=== PATIENT | female | born 1940 | race Caucasian/White ===

== ENCOUNTER 2019-01-25 16:59 | Inpatient (IN) | payer OTHER ==
--- NOTE | 2019-01-25 17:09 | PDOC ---
Rapid Medical Evaluation Time Seen by Provider: 01/25/19 17:06 Medical Evaluation: Allergies Allergy/AdvReac Type Severity Reaction Status Date / Time erythromycin lactobionate Allergy Verified 01/25/19 17:08 [From Erythrocin] 01/25/19 17:09 I performed a brief in-person evaluation of this patient. Chief complaint: Chest pain, weakness, dry cough, "hot and cold" for 2 days Pertinent physical exam findings: RRR, S1/S2, no murmurs, clear lungs. I have ordered the following: EKG, CXR, cardiac labs Patient will proceed to ED for further evaluation. Discharge Disposition - Diagnosis Chest pain - Referrals - Patient Instructions - Post Discharge Activity
--- NOTE | 2019-01-25 17:22 | PDOC ---
History of Present Illness - General Chief Complaint: Chest Pain Stated Complaint: CHEST PAIN Time Seen by Provider: 01/25/19 17:06 - History of Present Illness Initial Comments: 78yo F with PMH of HTN, HLD, Hypothyroid presenting with episodes of lightheadedness, diaphoresis, flushing, feeling "hot and cold," and weakness. These episodes have occurred at least once daily for the past week. The most recent episode occurred about one hour prior to arrival while she was out with her family. Denies loss of consciousness but does report she felt like she was going to pass out. Patient also reports chest "pressure" lasting for a couple minutes in correspondence with the most recent episode. The chest pain was non- radiating, non-pleuritic, and non-palpable. Denies shortness of breath, nausea, or vomiting. She has had high blood pressure readings in the past. Reports adherence to her medication regimen. No headaches, vision changes, or focal weakness. Patient has leg swelling at baseline which is not more than usual. She attributes this swelling to 'genetics' and does not believe it is due to a cardiac cause. Patient tested positive for influenza last month and was treated with tamiflu. She also has had a dry cough since that time. No hemoptysis, no recent surgical history, no recent immobilization, no hormone use, no history of DVT or PE. Denies fevers, urinary symptoms, or abdominal pain. PCP: Dr. Chambers (patient's granddaughter believed this doctor was the nut threader, but is listed in our callbook as an internal medicine provider) Endocrine: Dr. Oconnor Past History - Past Medical History Allergies/Adverse Reactions: Allergies Allergy/AdvReac Type Severity Reaction Status Date / Time erythromycin lactobionate Allergy Verified 01/25/19 17:08 [From Erythrocin] Home Medications: Ambulatory Orders Levothyroxine [Synthroid -] 100 mcg PO DAILY 11/14/14 Valsartan [Diovan] 160 mg PO DAILY 11/14/14 Collagenase Clostridium Hist. [Santyl -] 1 applic TP DAILY #14 applic 01/06/16 COPD: No GI Disorders: Yes (hiatal hernia) HTN: Yes Thyroid Disease: Yes - Surgical History Abdominal Surgery: Yes ([facility]) Cholecystectomy: Yes Orthopedic Surgery: Yes (bilateral knee replacement) - Immunization History Immunization Up to Date: Yes - Suicide/Smoking/Psychosocial Hx Smoking History: Never smoked Have you smoked in the past 12 months: No If you are a former smoker, when did you quit?: 30y Information on smoking cessation initiated: No Hx Alcohol Use: No Drug/Substance Use Hx: No Substance Use Type: None Review of Systems - Review of Systems Comments:: Constitutional: no fever, feeling 'hot and cold' HEENT: no throat pain, no dysphagia Cardiovascular: +chest pain, no palpitations Respiratory: +cough, no shortness of breath Gastrointestinal: no abdominal pain, no nausea Genitourinary: no dysuria, no frequency Musculoskeletal: no myalgia, no arthralgia Skin: no rash, no itching Neurologic: no headache, +weakness *Physical Exam - Vital Signs Last Vital Signs Temp Pulse Resp BP Pulse Ox 97.8 F 72 16 184/74 H 98 01/25/19 17:08 01/25/19 17:08 01/25/19 17:08 01/25/19 17:08 01/25/19 17:08 - Physical Exam Comments: General: Awake, alert, and fully oriented, in no acute distress Head: No signs of trauma Eyes: EOMI, sclera anicteric ENT: Moist mucus membranes Neck: Normal ROM, supple Lungs: Lungs clear, Normal breath sounds Cardio: Regular rhythm, S1 and S2 present Abdomen: Soft, nontender Extremities: Normal range of motion, Distal pulses present, BLE non-pitting edema SKIN: Warm, Dry, normal turgor Neurologic: Cranial nerves II through XII grossly intact. Normal speech ED Treatment Course - LABORATORY CBC & Chemistry Diagram: 01/25/19 17:00 01/25/19 17:00 Medical Decision Making - Medical Decision Making 78yo F with PMH of HTN, HLD, Hypothyroid presenting with episodes of lightheadedness, diaphoresis, flushing, feeling "hot and cold," and weakness. DDX including but not limited to vasovagal pre-syncope, cardiogenic pre-syncope , metabolic pre-syncope, neurogenic pre-syncope, postural pre-syncope, , ACS, PE VS significant for hypertension; patient is unsure of her baseline BP Pre-Syncope Workup EKG, CBC, CMP, Cardiac, CXR 01/25/19 18:36 EKG: rate 74, QTc 448, NSR CXR without acute pathology, my impression CBC WBC 6.9 K/mm3 (4.0-10.0) 01/25/19 17:00 RBC 4.33 M/mm3 (3.60-5.2) 01/25/19 17:00 Hgb 12.6 GM/dL (10.7-15.3) 01/25/19 17:00 Hct 37.9 % (32.4-45.2) 01/25/19 17:00 MCV 87.5 fl (80-96) 01/25/19 17:00 MCH 29.1 pg (25.7-33.7) 01/25/19 17:00 MCHC 33.2 g/dl (32.0-36.0) 01/25/19 17:00 RDW 14.1 % (11.6-15.6) 01/25/19 17:00 Plt Count 221 K/MM3 (134-434) 01/25/19 17:00 MPV 8.0 fl (7.5-11.1) 01/25/19 17:00 Absolute Neuts (auto) 4.5 K/mm3 (1.5-8.0) 01/25/19 17:00 Neutrophils % 64.9 % (42.8-82.8) 01/25/19 17:00 Lymphocytes % 24.9 % (8-40) D 01/25/19 17:00 Monocytes % 6.2 % (3.8-10.2) 01/25/19 17:00 Eosinophils % 2.6 % (0-4.5) 01/25/19 17:00 Basophils % 1.4 % (0-2.0) 01/25/19 17:00 Nucleated RBC % 0 % (0-0) 01/25/19 17:00 No anemia or leukocytosis CMP Sodium 137 mmol/L (136-145) 01/25/19 17:00 Potassium 4.4 mmol/L (3.5-5.1) 01/25/19 17:00 Chloride 107 mmol/L (98-107) 01/25/19 17:00 Carbon Dioxide 25 mmol/L (21-32) 01/25/19 17:00 Anion Gap 6 MMOL/L (8-16) L 01/25/19 17:00 BUN 18 mg/dL (7-18) 01/25/19 17:00 Creatinine 0.7 mg/dL (0.55-1.3) 01/25/19 17:00 Creat Clearance w eGFR 80.51 (>60) 01/25/19 17:00 Random Glucose 93 mg/dL (74-106) 01/25/19 17:00 Calcium 8.9 mg/dL (8.5-10.1) 01/25/19 17:00 Total Bilirubin 0.3 mg/dL (0.2-1) 01/25/19 17:00 AST 12 U/L (15-37) L 01/25/19 17:00 ALT 16 U/L (13-61) 01/25/19 17:00 Alkaline Phosphatase 73 U/L (45-117) 01/25/19 17:00 Creatine Kinase 56 U/L (26-192) 01/25/19 17:00 Troponin I < 0.02 ng/ml (0.00-0.05) 01/25/19 17:00 B-Natriuretic Peptide 110.6 pg/ml (5-450) 01/25/19 17:00 Total Protein 7.5 g/dl (6.4-8.2) 01/25/19 17:00 Albumin 3.8 g/dl (3.4-5.0) 01/25/19 17:00 Electrolytes unremarkable Tpn <0.02 BNP nl Plan to admit for pre-syncope 01/25/19 18:42 Vital Signs Temperature 97.8 F 01/25/19 17:08 Pulse Rate 77 01/25/19 18:32 Respiratory Rate 17 01/25/19 18:32 Blood Pressure 147/115 H 01/25/19 18:32 O2 Sat by Pulse Oximetry (%) 97 01/25/19 18:32 BP decreased from 184/74 which was taken at triage 01/25/19 18:[address] Ramirez who accepted patient for telemetry observation under Dr. Feliz. 01/25/19 19:42 *DC/Admit/Observation/Transfer Diagnosis at time of Disposition: Pre-syncope Chest pain Qualifiers: Chest pain type: other chest pain Qualified Code(s): R07.89 - Other chest pain - Discharge Dispostion Condition at time of disposition: Guarded Decision to Admit order: Yes - Referrals - Patient Instructions - Post Discharge Activity
[2019-01-25 17:35] LABS: BASO % 1.4 % (0-2.0); EOS % 2.6 % (0-4.5); HEMATOCRIT 37.9 % (32.4-45.2); HEMOGLOBIN 12.6 GM/dL (10.7-15.3); LYMPH % 24.9 % (8-40); MCH 29.1 pg (25.7-33.7); MCHC 33.2 g/dl (32.0-36.0); MEAN CELL VOLUME 87.5 fl (80-96); MONO % 6.2 % (3.8-10.2); NEUT % 64.9 % (42.8-82.8); PLATELET COUNT 221 K/MM3 (134-434); RBC 4.33 M/mm3 (3.60-5.2); RDW 14.1 % (11.6-15.6); WHITE BLOOD COUNT 6.9 K/mm3 (4.0-10.0)
[2019-01-25 17:47] LABS: INR 1.03 (0.83-1.09); PROTHROMBIN TIME (PATIENT) 12.1 SEC (9.7-13.0)
[2019-01-25 17:56] LABS: ALBUMIN 3.8 g/dl (3.4-5.0); ALK PHOS 73 U/L (45-117); ANION GAP 6 MMOL/L (8-16); BILIRUBIN,TOTAL 0.3 mg/dL (0.2-1); BLOOD UREA NITROGEN 18 mg/dL (7-18); CALCIUM 8.9 mg/dL (8.5-10.1); CHLORIDE 107 mmol/L (98-107); CO2 25 mmol/L (21-32); CREATININE 0.7 mg/dL (0.55-1.3); GLUCOSE,RANDOM 93 mg/dL (74-106); POTASSIUM 4.4 mmol/L (3.5-5.1); SGOT/AST 12 U/L (15-37); SGPT/ALT 16 U/L (13-61); SODIUM 137 mmol/L (136-145); TOT PROT 7.5 g/dl (6.4-8.2)
[2019-01-25 18:37] LABS: N-TERMINAL BNP 110.6 pg/ml (5-450)
--- NOTE | 2019-01-25 18:40 | PDOC ---
Documentation entered by Emre Forbes SCRIBE, acting as scribe for Doe Garnica MD. Doe Garnica MD: This documentation has been prepared by the Andrei gary Daniel, SCRIBE, under my direction and personally reviewed by me in its entirety. I confirm that the documentation accurately reflects all work, treatment, procedures, and medical decision making performed by me. Attending Attestation - Resident Resident Name: Geovanna Orr - ED Attending Attestation I have performed the following: I have examined & evaluated the patient, The case was reviewed & discussed with the resident, I agree w/resident's findings & plan, Exceptions are as noted - HPI HPI: 01/25/19 18:23 The patient is an 78 year old female with a past medical history of HTN, HLD, and hypothyroidism here today for evaluation of generalized symptoms of chest heaviness and pre-syncope. Pt states that she had 2 episodes today of feeling lightheaded. She states that she suddenly became flushed and felt like she was going to faint but did not lose consciousness. Per granddaughter, pt appeared very ill and looked like she was about to faint. Pt also endorses a heaviness in her chest but denies any pain. Denies SOB. Denies palpitations. Patient denies headache. Denies fever. Denies shortness of breath. Denies nausea , vomiting, diarrhea, abdominal pain. Denies lower extremity edema. Allergies: erythromycin lactobionate - Physicial Exam PE: 01/25/19 18:39 "GENERAL: Awake, alert, and fully oriented, in no acute distress. HEAD: No signs of trauma EYES: PERRLA, EOMI, sclera anicteric, conjunctiva clear ENT: Auricles normal inspection, hearing grossly normal, nares patent, oropharynx clear without exudates. Moist mucosa NECK: Nontender, no stepoffs, Normal ROM, supple, no lymphadenopathy, JVD, or masses LUNGS: Breath sounds equal, clear to auscultation bilaterally. No wheezes, and no crackles HEART: Regular rate and rhythm, normal S1 and S2, no murmurs, rubs or gallops ABDOMEN: Soft, nontender, normoactive bowel sounds. No guarding, no rebound. No masses EXTREMITIES: Normal range of motion, no edema. No clubbing or cyanosis. No cords, erythema, or tenderness NEUROLOGICAL: Cranial nerves II through XII intact. 5/5 strength and sensation in all extremities, Normal speech, normal gait, normal cerebellar function SKIN: Warm, Dry, normal turgor, no rashes or lesions noted. - Medical Decision Making 01/25/19 18:39 78 F with pre-syncope and chest heaviness. EKG without signs of ischemia. Will r /o ACS. Also consider paroxysmal arrhythmia. Will r/o infectious process as well. - labs, trop, BNP - CXR, UA - Admit tele 01/25/19 22:53 Granddaughter Candy'fer phone number# - [phone]
--- NOTE | 2019-01-25 19:21 | HP ---
Admitting History and Physical - Primary Care Physician PCP: Dr Chambers - Admission Chief Complaint: Dizziness and recurrent chest pain x 1 day History of Present Illness: Pt is an 78 yo F with PMHx of HTN, HLD, hypothyroidism, skin cancer s/p excision (3 years), Uterine cancer s/p hysterectomy and chemotx (2 years)-[facility] now presenting with pre-syncope and chest pain x2 today while shopping in the mall for one day. The pain was relieved by rest, sharp and epigastric, radiating to back with associated SOB. Relieved with change in position. There was associated diaphoresis. Each episode lasted about 6 minutes with associated dizziness, no collapse. Pt has chronic leg edema, no pulmonary hx but has had worsening fatigue over the past weeks. She is independent ADLS, walks without a cane. Smoked 50 years ago, no COPD, or asthma. 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 Does not recollect having a stress test done recently, no hx of CAD or arrythmias. Takes valsartan bid with intermittently elevated BP up to 160s and checks infrequently. Last BP and thyroid medication this am. Of note pt reports recent recovery from respiratory infection, was in touch with daughter recently treated fro pneumonia. 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 No: CVA, Dementia, Peripheral Neuropathy, Seizure, Syncope, TIA Cardiovascular: Yes: HTN, Hyperlipdemia. No: LA Pulmonary: Yes: Cancer (skin cancer with excision RLE, and uterine cancer s/p hysterectomy). No: Asthma, COPD Gastrointestinal: No: Ascites, Constipation, Gastritis, GI Bleed Renal/: No: Hematuria Psych: Yes: Anxiety Musculoskeletal: Yes: Osteoarthritis, Other (B/L knee replacements) ENT: No: Allergic Rhinitis, Sinusitis Endocrine: Yes: Hypothyroidism (On levothyroxine). No: Diabetes Mellitus Dermatology: Yes: Other (skin cancer unsure what type s/p excision) - Past Surgical History Past Surgical History: Yes: Hysterectomy - Smoking History Smoking history: Former smoker (Quit 50 years ago) Have you smoked in the past 12 months: No If you are a former smoker, when did you quit?: 30y - Alcohol/Substance Use Hx Alcohol Use: No - Social History Usual Living Arrangement: Yes: With Spouse ADL: Independent Home Medications - Allergies Allergies/Adverse Reactions: Allergies Allergy/AdvReac Type Severity Reaction Status Date / Time erythromycin lactobionate Allergy Verified 01/25/19 17:08 [From Erythrocin] - Home Medications Home Medications: Ambulatory Orders Levothyroxine [Synthroid -] 100 mcg PO DAILY 11/14/14 Valsartan [Diovan] 160 mg PO DAILY 11/14/14 Collagenase Clostridium Hist. [Santyl -] 1 applic TP DAILY #14 applic 01/06/16 Review of Systems - Review of Systems Constitutional: reports: Diaphoresis, Loss of Appetite, Weakness. denies: Chills, Fever, Malaise, Unintentional Wgt. Loss Eyes: denies: Double Vision, Eye Pain, Recent Change in Vision HENT: denies: Difficult Swallowing, Ear Discharge, Ear Pain, Epistaxis, Hearing Loss, Nasal Congestion Neck: denies: Stiffness, Tenderness Cardiovascular: reports: Chest Pain, Shortness of Breath. denies: Palpitations Respiratory: denies: Cough, Hemoptysis, Wheezing Gastrointestinal: denies: Abdominal Pain, Constipation, Diarrhea, Dysphagia, Vomiting Genitourinary: denies: Burning, Discharge, Dysuria, Flank Pain, Frequency, Incontinence Musculoskeletal: reports: Joint Swelling (b/l knee awelling l>R). denies: Back Pain Neurological: reports: Tremors (fine upper extremity), Unsteady Gait. denies: Change in LOC, Confusion, Dizziness, Parasthesia, Pre-Existing Deficit Psychiatric: reports: Anxiety Physical Examination Vital Signs: Vital Signs Temperature 97.8 F 01/25/19 17:08 Pulse Rate 77 01/25/19 18:32 Respiratory Rate 17 01/25/19 18:32 Blood Pressure 147/115 H 01/25/19 18:32 O2 Sat by Pulse Oximetry (%) 97 01/25/19 18:32 Constitutional: Yes: Calm Eyes: Yes: Conjunctiva Clear, EOM Intact, PERRL HENT: Yes: Atraumatic. No: Nasal Congestion, Pharyngeal Erythema Neck: Yes: Supple. No: Thyromegaly Cardiovascular: Yes: S1, S2 Respiratory: Yes: CTA Bilaterally Gastrointestinal: Yes: Normal Bowel Sounds, Soft Renal/: No: CVA Tenderness - Left, CVA Tenderness - Right, Urethral Discharge Edema: Yes Edema: LLE: 3+, RLE: 3+ Peripheral Pulses WNL: Yes Peripheral Pulses: Left Doralis Pedis: 1+, Right Dorsalis Pedis: 1+ Neurological: Yes: Alert, Oriented ...Motor Strength: WNL Psychiatric: Yes: Alert, Oriented Labs: CBC, BMP 01/25/19 17:00 01/25/19 17:00 Assessment/Plan Ambulatory Orders Levothyroxine [Synthroid -] 100 mcg PO DAILY 11/14/14 Valsartan [Diovan] 160 mg PO DAILY 11/14/14 Collagenase Clostridium Hist. [Santyl -] 1 applic TP DAILY #14 applic 01/06/16 Current Medications Levothyroxine Sodium (Synthroid -) 100 mcg PO AM [facility] Valsartan (Diovan -) 160 mg PO DAILY [facility] Last Admin: 01/25/19 21:00 Dose: 160 mg Pt is an 78 yo F with PMHx of HTN, HLD, hypothyroidism, skin cancer s/p excision (3 years), Uterine cancer s/p hysterectomy and chemotx (2 years)-[facility] now presenting with pre-syncope and chest pain x2 today while shopping in the mall for one day. 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 Reports compliance on diovan, but does not routnely check BP No recent stress test/echo done, no professor of pathology on file Initial trops negative Cont cardiac monitoring Repeat trops Initial EKG- no clear evidence of ongoing ischemia Repeat EKG #Chest pain Pain was epigastric and reproducible R/o ACS- heart score-5 Repeat trops Repeat EKG ECHO Cardiology consult-Dr Waggoner ASA 79 #Dizziness Worsening dizziness, especially on standing No hearing loss, no fevers, no URTI Questionable new gait abnormality CT head stat w/o Contrast #HTN Could be contributing to new dizziness Elevated in ED Diovan resumed Pending CT head Will need to control BP better if no acute changes on CT Lisinopril 5mg daily added #Leg swelling Pt with chronic b/l leg swelling for >5years No hx of CHF Echo pending Had prior b/l knee replacements for severe OA Now with worsening edema L>R Well's score for DVT-2 Duplex US of b/l LE BNP- 110- not elevated #HLD HgbA1c- pending ASCVD-cannot be calculated on 78year old, using age 75yrs- pt needs moderate - high intensity statins Lipid profile pending No statins documented #hypothyroidism On levothyroxine- cont TSH pending #Cancer Hx skin cancer s/p excision (3 years), Uterine cancer s/p hysterectomy Appears in remission for both #FEN No standing fluids Monitor Electrolytes, replete as needed Sodium free diet #PPx Heparin 40mg daily sq resumed with negative CT head #Dispo Tele obs Visit type - Emergency Visit Emergency Visit: Yes ED Registration Date: 01/25/19 Care time: The patient presented to the Emergency Department on the above date and was hospitalized for further evaluation of their emergent condition. - New Patient This patient is new to me today: Yes Date on this admission: 01/26/19 - Critical Care Critical Care patient: No
--- NOTE | 2019-01-25 20:21 | PN ---
Teaching Attending Note Name of Resident: Leilani Ramirez ATTENDING PHYSICIAN STATEMENT I saw and evaluated the patient. I reviewed the resident's note and discussed the case with the resident. I agree with the resident's findings and plan as documented. SUBJECTIVE: Seen and examined; please see resident note for further historical information. Briefly, she has a PMH of HTN, skin cancer with excision, uterine cancer. She was walking in the mall today when she got retrosternal chest pain and diaphoresis with associated dizziness for 1 weeks. She has been fatiguable easier than normal earlier. At home she takes valsartan. No previous stress test, caths; has not seen cardiology in the past. She has had LE edema for 5 years. She was unsteady due to the dizziness. Chest pain was somewhat typical , relieved with rest. 10 sys ROS done and negative aside from HPI PMH, PSH, FH, SH reviewed Home Medications Medication Instructions Recorded Levothyroxine [Synthroid -] 100 mcg PO DAILY 11/14/14 Valsartan [Diovan] 160 mg PO DAILY 11/14/14 Collagenase Clostridium Hist. 1 applic TP DAILY #14 applic 01/06/16 [Santyl -] OBJECTIVE: VS, labs, and imaging reviewed NAD, AAO, resting comfortably in bed NC AT EOMI PERRLA RRR s1/2 no mgr Lungs CTAB, w/ sym exp NT ND +BS CN2-12 wnl, no fnd ASSESSMENT AND PLAN: Patient presents with somewhat typical chest pain and dizziness found to have 1) Chest Pain Somewhat convincing story with no prior cardiac workup but some risk factors ( HTN, obese, remote history smoking, etc.). Will obtain labs to fully risk stratify and observe on tele and trend troponin. Consult CV for further recommendations regarding stress test, etc. 2) Presyncope Dizziness, etc. noted earlier. CT ordered to r/o central process. No tinitus or rotational movement. Will check echo and monitor telemetry. Orthostatics negative done by resident. 3) HTN -Continue home meds; titrate if needed 4) Hx Hypothyroid Continue home meds; check TSH
[2019-01-25] MEDS ORDERED: VALSARTAN 80 MG TABLET (UD) ONE (20:46)
[2019-01-25] MEDS: VALSARTAN 160 MG TABLET (UD) PO SCH (21:00)
[2019-01-25 22:23] LABS: CHOLESTEROL 235 mg/dL (50-200); HDL CHOLESTEROL 76 mg/dL (40-60); TRIGLYCERIDES 59 mg/dL (0-150)
[2019-01-26 00:35] LABS: URINE APPEARANCE CLEAR; URINE BILIRUBIN NEGATIVE (NEGATIVE); URINE COLOR YELLOW; URINE GLUCOSE (UA) NEGATIVE (NEGATIVE); URINE KETONE NEGATIVE (NEGATIVE); URINE LEUK ESTERASE TRACE (NEGATIVE); URINE NITRITE NEGATIVE (NEGATIVE); URINE PROTEIN NEGATIVE (NEGATIVE); URINE UROBILINOGEN 0.2 mg/dL (0.2-1.0)
[2019-01-26 00:49] LABS: URINE RBC 0-1 /hpf (0-4)
[2019-01-26 01:49] VITALS: BMI 34.2
[2019-01-26] MEDS: LISINOPRIL 5 MG TABLET (FP) PO SCH ×2 (01:57→09:14)
[2019-01-26] MEDS ORDERED: LISINOPRIL 5 MG TABLET (FP) PO ONE (02:29)
[2019-01-26 06:30] LABS: BASO % 2.2 % (0-2.0); EOS % 4.1 % (0-4.5); HEMATOCRIT 33.7 % (32.4-45.2); HEMOGLOBIN 11.3 GM/dL (10.7-15.3); LYMPH % 32.6 % (8-40); MCH 29.1 pg (25.7-33.7); MCHC 33.5 g/dl (32.0-36.0); MEAN CELL VOLUME 87.1 fl (80-96); MEAN PLT VOLUME 8.1 fl (7.5-11.1); MONO % 7.4 % (3.8-10.2); NEUT % 53.7 % (42.8-82.8); PLATELET COUNT 207 K/MM3 (134-434); RBC 3.86 M/mm3 (3.60-5.2); RDW 14.2 % (11.6-15.6); WHITE BLOOD COUNT 6.2 K/mm3 (4.0-10.0)
[2019-01-26] MEDS: LEVOTHYROXINE NA 100 MCG TABLET (FP) PO SCH (06:41)
[2019-01-26 06:44] LABS: INR 1.02 (0.83-1.09)
[2019-01-26 07:01] LABS: ALBUMIN 3.1 g/dl (3.4-5.0); ALK PHOS 64 U/L (45-117); ANION GAP 5 MMOL/L (8-16); BILIRUBIN,TOTAL 0.3 mg/dL (0.2-1); BLOOD UREA NITROGEN 22 mg/dL (7-18); CALCIUM 8.5 mg/dL (8.5-10.1); CHLORIDE 108 mmol/L (98-107); CO2 27 mmol/L (21-32); CREATININE 0.7 mg/dL (0.55-1.3); GLUCOSE,RANDOM 90 mg/dL (74-106); PHOSPHOROUS 4.8 mg/dL (2.5-4.9); SGOT/AST 11 U/L (15-37); SGPT/ALT 13 U/L (13-61); SODIUM 140 mmol/L (136-145); TOT PROT 6.3 g/dl (6.4-8.2)
[2019-01-26] MEDS: HEPARIN NA (PORCINE) 5,000 UNITS/ML 1ML VIAL SQ SCH ×3 (09:14→21:23)
[2019-01-26] MEDS: VALSARTAN 160 MG TABLET (UD) PO SCH (09:14)
[2019-01-26] MEDS: ASPIRIN 81 MG CHEWABLE TABLETS PO SCH (09:14)
--- NOTE | 2019-01-26 09:14 | PN ---
Progress Note, Physician - Current Medication List Current Medications: Active Medications Aspirin (Asa -) 81 mg PO DAILY [facility] Atorvastatin Calcium (Lipitor -) 40 mg PO HS [facility] Heparin Sodium (Porcine) (Heparin -) 5,000 unit SQ TID [facility] Levothyroxine Sodium (Synthroid -) 100 mcg PO AM [facility] Last Admin: 01/26/19 06:41 Dose: 100 mcg Lisinopril (Prinivil) 5 mg PO DAILY [facility] Last Admin: 01/26/19 01:57 Dose: 5 mg Valsartan (Diovan -) 160 mg PO DAILY [facility] Last Admin: 01/25/19 21:00 Dose: 160 mg - Objective Vital Signs: Vital Signs Temperature 97.9 F 01/26/19 06:00 Pulse Rate 64 01/26/19 06:00 Respiratory Rate 18 01/26/19 06:00 Blood Pressure 144/55 L 01/26/19 06:00 O2 Sat by Pulse Oximetry (%) 97 01/26/19 01:30 Constitutional: Yes: Well Nourished, No Distress, Calm Eyes: Yes: WNL, Conjunctiva Clear, EOM Intact HENT: Yes: WNL, Atraumatic, Normocephalic Neck: Yes: WNL, Supple, Trachea Midline Cardiovascular: Yes: WNL, Regular Rate and Rhythm Respiratory: Yes: WNL, Regular, CTA Bilaterally Gastrointestinal: Yes: WNL, Normal Bowel Sounds, Soft ...Rectal Exam: Yes: Deferred Musculoskeletal: Yes: WNL Extremities: Yes: WNL Edema: Yes Edema: LLE: 2+, RLE: 2+ Peripheral Pulses WNL: Yes Integumentary: Yes: WNL Neurological: Yes: WNL, Alert, Oriented ...Motor Strength: WNL Psychiatric: Yes: WNL, Alert, Oriented Labs: CBC, BMP 01/26/19 05:30 01/26/19 05:30 INR, PTT INR 1.02 (0.83-1.09) 01/26/19 05:30 Problem List - Problems (1) Chest pain Code(s): R07.9 - CHEST PAIN, UNSPECIFIED Qualifiers: Chest pain type: other chest pain Qualified Code(s): R07.89 - Other chest pain; R07.8 - Other chest pain (2) Pre-syncope Code(s): R55 - SYNCOPE AND COLLAPSE (3) Hypertension Code(s): I10 - ESSENTIAL (PRIMARY) HYPERTENSION Assessment/Plan this is an 78 y/o f patient presents with hx of HTN, presented to the hospital with an atypical chest pain and associated with dizziness 1) atypical chest Pain - patient has a grade III murmur at the aortic area Trend ECG - Trend Troponin - obtain cardiology consult - admit to tele 2) Presyncope - admit to tele - cardiology - grade 3 murmur at the 2nd IC space - echocardio 3) HTN -Continue home meds; titrate if needed 4) Hx Hypothyroid Continue home meds
[2019-01-26] MEDS ORDERED: ENOXAPARIN NA (PORCINE) 40 MG/0.4 ML DISP.SYRIN SQ SCH (10:00)
--- NOTE | 2019-01-26 12:23 | CON.CARD ---
Consult Consult Specialty:: Cardiology Referred by:: Medicine Reason for Consultation:: chest pain - History of Present Illness Chief Complaint: chest pain, dizziness History of Present Illness: 78F HTN, HLD, hypothyroidism, uterine cancer s/p hysterectom/chemo p/w presyncope, chest pain [place]lie walking in mall. Sharp and epigastric pain, relieved by rest with associated shortness of breath and sweating. Had episodes lasting a few minutes each. Also felt dizziness like she was going to pass out. Today feels better. No prior cardiac hx - Past Medical History OTOLARYNGOLOGY PHYSICIAN: Yes: Vertigo. No: CVA, Dementia, Peripheral Neuropathy, Seizure, Syncope, TIA Cardio/Vascular: Yes: HTN, Hyperlipdemia. No: AL Pulmonary: Yes: Cancer (skin cancer with excision RLE, and uterine cancer s/p hysterectomy). No: Asthma, COPD Gastrointestinal: No: Ascites, Constipation, Gastritis, GI Bleed Renal/: No: Hematuria ...: No Psych: Yes: Anxiety Musculoskeletal: Yes: Osteoarthritis, Other (B/L knee replacements) ENT: No: Allergic Rhinitis, Sinusitis Endocrine: Yes: Hypothyroidism (On levothyroxine). No: Diabetes Mellitus Dermatology: Yes: Other (skin cancer unsure what type s/p excision) - Past Surgical History Past Surgical History: Yes: Hysterectomy - Alcohol/Substance Use Hx Alcohol Use: No - Smoking History Smoking history: Former smoker (Quit 50 years ago) Have you smoked in the past 12 months: No If you are a former smoker, when did you quit?: 30y - Social History ADL: Independent Home Medications - Allergies Allergies/Adverse Reactions: Allergies Allergy/AdvReac Type Severity Reaction Status Date / Time erythromycin lactobionate Allergy Verified 01/25/19 17:08 [From Erythrocin] - Home Medications Home Medications: Ambulatory Orders Levothyroxine [Synthroid -] 100 mcg PO DAILY 11/14/14 Valsartan [Diovan] 160 mg PO DAILY 11/14/14 Collagenase Clostridium Hist. [Santyl -] 1 applic TP DAILY #14 applic 01/06/16 Family Disease History - Family Disease History Family History: Unremarkable Review of Systems - Review of Systems Constitutional: reports: No Symptoms Eyes: reports: No Symptoms HENT: reports: No Symptoms Neck: reports: No Symptoms Cardiovascular: reports: No Symptoms Respiratory: reports: No Symptoms Gastrointestinal: reports: No Symptoms Genitourinary: reports: No Symptoms Musculoskeletal: reports: No Symptoms Integumentary: reports: No Symptoms Neurological: reports: No Symptoms Endocrine: reports: No Symptoms Hematology/Lymphatic: reports: No Symptoms Psychiatric: reports: No Symptoms Vital Signs: Vital Signs Temperature 98 F 01/26/19 10:00 Pulse Rate 68 01/26/19 10:00 Respiratory Rate 20 01/26/19 10:00 Blood Pressure 148/67 01/26/19 10:00 O2 Sat by Pulse Oximetry (%) 95 01/26/19 09:00 Constitutional: Yes: Well Nourished, No Distress, Calm Eyes: Yes: Conjunctiva Clear, EOM Intact HENT: Yes: Atraumatic, Normocephalic Neck: Yes: Supple, Trachea Midline Respiratory: Yes: Regular, CTA Bilaterally Gastrointestinal: Yes: Normal Bowel Sounds, Soft Cardiovascular: Yes: Regular Rate and Rhythm JVD: No Carotid Bruit: No PMI: Non-Displaced Heart Sounds: Yes: S1, S2 Murmur: Yes: Systolic Murmur, Grade 2 Musculoskeletal: No: Back Pain Extremities: No: Cold Edema: Yes Edema: LLE: Trace, RLE: Trace Peripheral Pulses WNL: Yes Peripheral Pulses: 2+ Left Doralis Pedis, 2+ Right Dorsalis Pedis Integumentary: No: Jaundice Neurological: Yes: Alert, Oriented Psychiatric: No: Agitated - Other Data Labs, Other Data: CBC, BMP 01/26/19 05:30 01/26/19 05:30 INR, PTT INR 1.02 (0.83-1.09) 01/26/19 05:30 Troponin, BNP 01/25/19 01/25/19 01/26/19 17:00 21:31 05:30 Troponin I < 0.02 < 0.02 < 0.02 B-Natriuretic Peptide 110.6 Troponin, BNP 01/25/19 01/25/19 01/26/19 17:00 21:31 05:30 Troponin I < 0.02 < 0.02 < 0.02 B-Natriuretic Peptide 110.6 Assessment/Plan EKG: sinus, nl intervals, no ischemic changes CXR: questionable retrocardiac density tele: sinus Chest pain, dizziness - epigastric pain, reproducible - now resolved - monitoring on tele, no events - orthostatics negative - trop neg x3, EKG no ischemic changes - less likely ACS - echo pending HTN - not compliant at home with diovan - resumed in ER - BP improved, monitor Edema - stable for 5 years - lower ext doppler no DVT - echo pending HLD - started on atorvastatin here, continue hypothyroidism - manage per primary
--- NOTE | 2019-01-26 14:11 | EKG ---
Test Reason : Blood Pressure : / mmHG Vent. Rate : 064 BPM Atrial Rate : 064 BPM P-R Int : 182 ms QRS Dur : 092 ms QT Int : 436 ms P-R-T Axes : 039 004 040 degrees QTc Int : 449 ms NORMAL SINUS RHYTHM POSSIBLE INFERIOR INFARCT , AGE UNDETERMINED CANNOT RULE OUT ANTERIOR INFARCT , AGE UNDETERMINED ABNORMAL ECG Confirmed by MD BRENTON, MONSE ([id number]) on 01/26/2019 2:11:17 PM Referred By: Confirmed By:MONSE FARRIS MD
--- NOTE | 2019-01-26 14:20 | EKG ---
Test Reason : Blood Pressure : / mmHG Vent. Rate : 074 BPM Atrial Rate : 074 BPM P-R Int : 168 ms QRS Dur : 092 ms QT Int : 404 ms P-R-T Axes : 053 009 048 degrees QTc Int : 448 ms NORMAL SINUS RHYTHM CANNOT RULE OUT ANTERIOR INFARCT , AGE UNDETERMINED ABNORMAL ECG Confirmed by MD BRENTON, MONSE ([id number]) on 01/26/2019 2:19:59 PM Referred By: Confirmed By:MONSE FARRIS MD
[2019-01-26] MEDS: ATORVASTATIN CA 40 MG TABLET (FP) PO SCH (21:23)
[2019-01-27] MEDS: HEPARIN NA (PORCINE) 5,000 UNITS/ML 1ML VIAL SQ SCH ×3 (06:01→21:30)
[2019-01-27] MEDS: LEVOTHYROXINE NA 100 MCG TABLET (FP) PO SCH (06:02)
--- NOTE | 2019-01-27 07:33 | PN ---
Progress Note, Physician - Current Medication List Current Medications: Active Medications Aspirin (Asa -) 81 mg PO DAILY [facility] Last Admin: 01/26/19 09:14 Dose: 81 mg Atorvastatin Calcium (Lipitor -) 40 mg PO HS [facility] Last Admin: 01/26/19 21:23 Dose: 40 mg Heparin Sodium (Porcine) (Heparin -) 5,000 unit SQ TID [facility] Last Admin: 01/27/19 06:01 Dose: 5,000 unit Levothyroxine Sodium (Synthroid -) 100 mcg PO AM [facility] Last Admin: 01/27/19 06:02 Dose: 100 mcg Valsartan (Diovan -) 160 mg PO DAILY [facility] Last Admin: 01/26/19 09:14 Dose: 160 mg - Objective Vital Signs: Vital Signs Temperature 97.8 F 01/27/19 05:59 Pulse Rate 57 L 01/27/19 05:59 Respiratory Rate 20 01/27/19 05:59 Blood Pressure 155/75 01/27/19 05:59 O2 Sat by Pulse Oximetry (%) 98 01/27/19 01:00 Constitutional: Yes: Well Nourished, No Distress, Calm Eyes: Yes: WNL, Conjunctiva Clear, EOM Intact HENT: Yes: WNL, Atraumatic, Normocephalic Neck: Yes: WNL, Supple, Trachea Midline Cardiovascular: Yes: WNL, Regular Rate and Rhythm Respiratory: Yes: WNL, Regular, CTA Bilaterally Gastrointestinal: Yes: WNL, Normal Bowel Sounds, Soft Musculoskeletal: Yes: WNL Extremities: Yes: WNL Edema: No Peripheral Pulses WNL: Yes Integumentary: Yes: WNL Neurological: Yes: WNL, Alert, Oriented ...Motor Strength: WNL Psychiatric: Yes: WNL, Alert, Oriented Labs: INR, PTT INR 1.02 (0.83-1.09) 01/26/19 05:30 Problem List - Problems (1) Chest pain Code(s): R07.9 - CHEST PAIN, UNSPECIFIED Qualifiers: Chest pain type: other chest pain Qualified Code(s): R07.89 - Other chest pain; R07.8 - Other chest pain (2) Pre-syncope Code(s): R55 - SYNCOPE AND COLLAPSE (3) Hypertension Code(s): I10 - ESSENTIAL (PRIMARY) HYPERTENSION Assessment/Plan this is an 78 y/o f patient presents with hx of HTN, presented to the hospital with an atypical chest pain and associated with dizziness 1) atypical chest Pain - patient has a grade III murmur at the aortic area ACS is unlikely - will d/c patient tomorrow pending echocardiography 2) Presyncope - grade 3 murmur at the 2nd IC space - echocardio 3) HTN -c/w valsartan 160mg daily consider increasing the valsartan to 160mg AM and 80mg HS if the SBP is still > 150 4) Hx Hypothyroid Continue home meds GERD - pantaprezole 40mg daily
[2019-01-27 07:41] LABS: BASO % 1.9 % (0-2.0); EOS % 4.6 % (0-4.5); HEMATOCRIT 35.1 % (32.4-45.2); HEMOGLOBIN 11.8 GM/dL (10.7-15.3); LYMPH % 35.9 % (8-40); MCH 29.7 pg (25.7-33.7); MCHC 33.7 g/dl (32.0-36.0); MEAN CELL VOLUME 88.1 fl (80-96); MEAN PLT VOLUME 8.7 fl (7.5-11.1); NEUT % 51.6 % (42.8-82.8); PLATELET COUNT 188 K/MM3 (134-434); RBC 3.99 M/mm3 (3.60-5.2); RDW 14.2 % (11.6-15.6); WHITE BLOOD COUNT 5.4 K/mm3 (4.0-10.0)
[2019-01-27 08:34] LABS: ALBUMIN 3.3 g/dl (3.4-5.0); ALK PHOS 55 U/L (45-117); ANION GAP 5 MMOL/L (8-16); BILIRUBIN,TOTAL 0.3 mg/dL (0.2-1); BLOOD UREA NITROGEN 15 mg/dL (7-18); CALCIUM 8.8 mg/dL (8.5-10.1); CHLORIDE 109 mmol/L (98-107); CO2 28 mmol/L (21-32); CREATININE 0.7 mg/dL (0.55-1.3); GLUCOSE,RANDOM 85 mg/dL (74-106); SGOT/AST 10 U/L (15-37); SGPT/ALT 12 U/L (13-61); SODIUM 142 mmol/L (136-145); TOT PROT 6.3 g/dl (6.4-8.2)
[2019-01-27] MEDS: VALSARTAN 160 MG TABLET (UD) PO SCH (09:18)
[2019-01-27] MEDS: ASPIRIN 81 MG CHEWABLE TABLETS PO SCH (09:18)
--- NOTE | 2019-01-27 10:57 | PN ---
Progress Note (short form) - Note Progress Note: s: no chest pain, palps, dizziness, edema, dyspnea Current Medications Aspirin (Asa -) 81 mg PO DAILY [facility] Last Admin: 01/27/19 09:18 Dose: 81 mg Atorvastatin Calcium (Lipitor -) 40 mg PO HS [facility] Last Admin: 01/26/19 21:23 Dose: 40 mg Heparin Sodium (Porcine) (Heparin -) 5,000 unit SQ TID [facility] Last Admin: 01/27/19 06:01 Dose: 5,000 unit Levothyroxine Sodium (Synthroid -) 100 mcg PO AM [facility] Last Admin: 01/27/19 06:02 Dose: 100 mcg Pantoprazole Sodium (Protonix -) 40 mg PO DAILY [facility] Valsartan (Diovan -) 160 mg PO DAILY [facility] Last Admin: 01/27/19 09:18 Dose: 160 mg Vital Signs: Vital Signs Period Temp Pulse Resp BP Sys/Sanchez Pulse Ox Last 24 Hr 97.8 F-98.0 F 57-80 18-20 136-155/58-80 98 Constitutional: Yes: Well Nourished, No Distress, Calm Eyes: Yes: Conjunctiva Clear, EOM Intact HENT: Yes: Atraumatic, Normocephalic Neck: Yes: Supple, Trachea Midline Respiratory: Yes: Regular, CTA Bilaterally Gastrointestinal: Yes: Normal Bowel Sounds, Soft Cardiovascular: Yes: Regular Rate and Rhythm JVD: No Carotid Bruit: No PMI: Non-Displaced Heart Sounds: Yes: S1, S2 Murmur: Yes: Systolic Murmur, Grade 2 Musculoskeletal: No: Back Pain Extremities: No: Cold Edema: Yes Edema: LLE: Trace, RLE: Trace Peripheral Pulses WNL: Yes Peripheral Pulses: 2+ Left Doralis Pedis, 2+ Right Dorsalis Pedis Integumentary: No: Jaundice Neurological: Yes: Alert, Oriented Psychiatric: No: Agitated Assessment/Plan EKG: sinus, nl intervals, no ischemic changes CXR: questionable retrocardiac density tele: sinus, brief SVT Chest pain, dizziness - epigastric pain, reproducible - now resolved, atypical for cardiac etiology - monitoring on tele, no events - orthostatics negative - trop neg x3, EKG no ischemic changes - less likely ACS - echo pending, if benign findings no further testing as inpatient HTN - not compliant at home with diovan - resumed in ER - BP improved, monitor Edema - stable for 5 years - lower ext doppler no DVT - echo pending HLD - started on atorvastatin here, continue hypothyroidism - manage per primary
[2019-01-27] MEDS: ATORVASTATIN CA 40 MG TABLET (FP) PO SCH (21:30)
[2019-01-28] MEDS: HEPARIN NA (PORCINE) 5,000 UNITS/ML 1ML VIAL SQ SCH ×2 (06:08→14:09)
[2019-01-28] MEDS: LEVOTHYROXINE NA 100 MCG TABLET (FP) PO SCH (06:08)
--- NOTE | 2019-01-28 08:02 | PN ---
Teaching Attending Note ATTENDING PHYSICIAN STATEMENT I saw and evaluated the patient. I reviewed the resident's note and discussed the case with the resident. I agree with the resident's findings and plan as documented. SUBJECTIVE: OBJECTIVE: Vital Signs Temperature 97.7 F 01/28/19 01:37 Pulse Rate 64 01/28/19 01:37 Respiratory Rate 20 01/28/19 01:37 Blood Pressure 134/56 L 01/28/19 01:37 O2 Sat by Pulse Oximetry (%) 98 01/28/19 01:00 CBC, BMP 01/27/19 05:00 01/27/19 05:00 ASSESSMENT AND PLAN: Problem List - Problems (1) Chest pain Code(s): R07.9 - CHEST PAIN, UNSPECIFIED Qualifiers: Chest pain type: other chest pain Qualified Code(s): R07.89 - Other chest pain; R07.8 - Other chest pain (2) Pre-syncope Code(s): R55 - SYNCOPE AND COLLAPSE (3) Hypertension Code(s): I10 - ESSENTIAL (PRIMARY) HYPERTENSION
--- NOTE | 2019-01-28 09:22 | PN ---
Progress Note (short form) - Note Progress Note: Hospitalist to document today. W/U for CP; presycope. The patient tells me she has been compliant with Diovan at home. With Hx. Uterine CA and 2yrs chemotherapy at [facility] will order Chest CT.
--- NOTE | 2019-01-28 09:37 | PN ---
Progress Note, Physician Chief Complaint: seen and examined on tele No CP or SOB History of Present Illness: TELE: NSR, short self limited run PSVT - Current Medication List Current Medications: Active Medications Aspirin (Asa -) 81 mg PO DAILY [facility] Last Admin: 01/27/19 09:18 Dose: 81 mg Atorvastatin Calcium (Lipitor -) 40 mg PO HS [facility] Last Admin: 01/27/19 21:30 Dose: 40 mg Heparin Sodium (Porcine) (Heparin -) 5,000 unit SQ TID [facility] Last Admin: 01/28/19 06:08 Dose: 5,000 unit Levothyroxine Sodium (Synthroid -) 100 mcg PO AM [facility] Last Admin: 01/28/19 06:08 Dose: 100 mcg Pantoprazole Sodium (Protonix -) 40 mg PO DAILY [facility] Valsartan (Diovan -) 160 mg PO DAILY [facility] Last Admin: 01/27/19 09:18 Dose: 160 mg - Objective Vital Signs: Vital Signs Temperature 97.8 F 01/28/19 06:00 Pulse Rate 64 01/28/19 06:00 Respiratory Rate 18 01/28/19 06:00 Blood Pressure 138/61 01/28/19 06:00 O2 Sat by Pulse Oximetry (%) 98 01/28/19 01:00 Constitutional: Yes: Calm Cardiovascular: Yes: Regular Rate and Rhythm Respiratory: Yes: CTA Bilaterally Gastrointestinal: Yes: Soft Edema: No Neurological: Yes: Alert, Oriented ...Motor Strength: WNL Labs: CBC, BMP 01/27/19 05:00 01/27/19 05:00 INR, PTT INR 1.02 (0.83-1.09) 01/26/19 05:30 Laboratory Tests 01/25/19 01/25/19 01/26/19 21:31 21:31 05:30 WBC Hct Plt Count Sodium Potassium BUN Creatinine Troponin I < 0.02 < 0.02 Total LDL Cholesterol 151 H 01/27/19 01/27/19 05:00 05:00 WBC 5.4 Hct 35.1 Plt Count 188 Sodium 142 Potassium 4.0 BUN 15 Creatinine 0.7 Troponin I Total LDL Cholesterol Assessment/Plan IMP/Plan: 1. Chest pain, dizziness - epigastric pain, reproducible - now resolved, atypical for cardiac etiology - monitoring on tele, no events - orthostatics negative - trop neg x3, EKG no ischemic changes - less likely ACS - echo pending, if benign findings no further testing as inpatient -Outpatient stress test can be scheduled.. 2. HTN - not compliant at home with diovan - resumed in ER - BP improved, monitor 3. Edema - stable for 5 years - lower ext doppler no DVT - echo pending 4. HLD - started on atorvastatin here, continue
[2019-01-28] MEDS ORDERED: PANTOPRAZOLE 40 MG TABLET (FP) PO SCH (10:00)
[2019-01-28] MEDS: ASPIRIN 81 MG CHEWABLE TABLETS PO SCH (10:32)
[2019-01-28] MEDS: VALSARTAN 160 MG TABLET (UD) PO SCH (10:32)
--- NOTE | 2019-01-28 12:58 | ECHO ---
Name: KUSH MURO Exam:Adult Echocardiogram Study Date: 01/28/2019 11:04 AM Age: 78 yrs Reason For Study: chest pain, leg edema Height: 63 in Weight: 186 lb BSA: 1.9 m2 Procedure The study was technically adequate with some images being suboptimal in quality. Left Ventricle The left ventricular size, thickness and function are normal. Ejection Fraction = 60-65%. Grade I di stolic dysfunction, (abnormal relaxation pattern). Right Ventricle The right ventricle is normal in size and function. Atria Normal left and right atrial size and function. Mitral Valve The mitral valve is grossly normal. There is trace mitral regurgitation. Tricuspid Valve The tricuspid valve is normal. There is trace tricuspid regurgitation. There was insufficient TR dete cted to calculate RV systolic pressure. Aortic Valve There is mild aortic sclerosis.;. The aortic valve opens well. No aortic regurgitation is present. Pulmonic Valve The pulmonic valve is not well visualized. Great Vessels Mild aortic root dilatation. Pericardium/Pleura There is no pericardial effusion. Interpretation Summary There is no comparison study available. Ejection Fraction = 60-65%. There is trace tricuspid regurgitation. The right ventricle is normal in size and function. There is trace mitral regurgitation. Grade I diastolic dysfunction, (abnormal relaxation pattern). Roberto Ceron MD 01/28/2019 12:57 PM
[2019-01-28] MEDS ORDERED: amLODIPine BESYLATE 5 MG TABLET (FP) PO SCH (15:00)
[2019-01-28 15:39] VITALS: PULSE 72; TEMP 97.9
--- NOTE | 2019-01-28 16:13 | DS ---
Physical Examination Vital Signs: Vital Signs Temperature 97.9 F 01/28/19 14:00 Pulse Rate 72 01/28/19 14:00 Respiratory Rate 18 01/28/19 10:26 Blood Pressure 182/78 H 01/28/19 14:00 O2 Sat by Pulse Oximetry (%) 98 01/28/19 10:26 Constitutional: Yes: Well Nourished, No Distress Eyes: Yes: Conjunctiva Clear, EOM Intact HENT: Yes: Atraumatic, Normocephalic Neck: Yes: Supple, Trachea Midline Cardiovascular: Yes: Regular Rate and Rhythm, S1 Respiratory: Yes: WNL, Regular, CTA Bilaterally Gastrointestinal: Yes: Normal Bowel Sounds, Soft Musculoskeletal: No: Back Pain, Joint Stiffness Extremities: No: Calf Tenderness Edema: RUE: 1+, LLE: 1+ Peripheral Pulses: Left Doralis Pedis: 1+, Right Dorsalis Pedis: 1+ Neurological: Yes: Alert, Oriented, Cran Nerves II-XII Intact ...Motor Strength: WNL, LUE, LLE, RUE, RLE Labs: CBC, BMP WBC 5.4 K/mm3 (4.0-10.0) 01/27/19 05:00 RBC 3.99 M/mm3 (3.60-5.2) 01/27/19 05:00 Hgb 11.8 GM/dL (10.7-15.3) 01/27/19 05:00 Hct 35.1 % (32.4-45.2) 01/27/19 05:00 MCV 88.1 fl (80-96) 01/27/19 05:00 MCH 29.7 pg (25.7-33.7) 01/27/19 05:00 MCHC 33.7 g/dl (32.0-36.0) 01/27/19 05:00 RDW 14.2 % (11.6-15.6) 01/27/19 05:00 Plt Count 188 K/MM3 (134-434) 01/27/19 05:00 MPV 8.7 fl (7.5-11.1) 01/27/19 05:00 Absolute Neuts (auto) 2.8 K/mm3 (1.5-8.0) 01/27/19 05:00 Neutrophils % 51.6 % (42.8-82.8) 01/27/19 05:00 Lymphocytes % 35.9 % (8-40) 01/27/19 05:00 Monocytes % 6.0 % (3.8-10.2) 01/27/19 05:00 Eosinophils % 4.6 % (0-4.5) H 01/27/19 05:00 Basophils % 1.9 % (0-2.0) 01/27/19 05:00 Nucleated RBC % 0 % (0-0) 01/27/19 05:00 Sodium 142 mmol/L (136-145) 01/27/19 05:00 Potassium 4.0 mmol/L (3.5-5.1) 01/27/19 05:00 Chloride 109 mmol/L (98-107) H 01/27/19 05:00 Carbon Dioxide 28 mmol/L (21-32) 01/27/19 05:00 Anion Gap 5 MMOL/L (8-16) L 01/27/19 05:00 BUN 15 mg/dL (7-18) 01/27/19 05:00 Creatinine 0.7 mg/dL (0.55-1.3) 01/27/19 05:00 Creat Clearance w eGFR 80.51 (>60) 01/27/19 05:00 Random Glucose 85 mg/dL (74-106) 01/27/19 05:00 Hemoglobin A1c % 5.8 % (4.2-6.3) 01/25/19 22:24 Calcium 8.8 mg/dL (8.5-10.1) 01/27/19 05:00 Phosphorus 4.8 mg/dL (2.5-4.9) 01/26/19 05:30 Magnesium 2.0 mg/dL (1.8-2.4) 01/26/19 05:30 Total Bilirubin 0.3 mg/dL (0.2-1) 01/27/19 05:00 AST 10 U/L (15-37) L 01/27/19 05:00 ALT 12 U/L (13-61) L 01/27/19 05:00 Alkaline Phosphatase 55 U/L (45-117) 01/27/19 05:00 Creatine Kinase 46 U/L (26-192) 01/25/19 21:31 Troponin I < 0.02 ng/ml (0.00-0.05) 01/26/19 05:30 B-Natriuretic Peptide 110.6 pg/ml (5-450) 01/25/19 17:00 Total Protein 6.3 g/dl (6.4-8.2) L 01/27/19 05:00 Albumin 3.3 g/dl (3.4-5.0) L 01/27/19 05:00 Triglycerides 59 mg/dL (0-150) 01/25/19 21:31 Cholesterol 235 mg/dL (50-200) H 01/25/19 21:31 Total LDL Cholesterol 151 mg/dL (5-100) H 01/25/19 21:31 HDL Cholesterol 76 mg/dL (40-60) H 01/25/19 21:31 Lipase 144 U/L (73-393) 01/25/19 22:24 TSH 2.55 uIU/ml (0.358-3.74) 01/25/19 22:24 CXR: Normal LE Doppler Marla;l CT Chest; No PE ECHO: Normal Discharge Summary Reason For Visit: CHEST PAIN/PRE- SYNCOPE Current Active Problems Chest pain (Acute) Pre-syncope (Acute) SVT Hospital Course: 78yo F with PMH of HTN, HLD, Hypothyroid presenting with episodes of lightheadedness, diaphoresis, flushing, feeling "hot and cold," and weakness, patient had a brief episode of PSAVT, considering LE swelling and chest pain evaluated for ACS and PE u, patient remained asymptomatic during the course of hospitalization, normal, CBC, Serial CE, ECHP, LE Doppler no DVT, CT chest no PE , evaluted by Cardiology consult recommended out patient F/U Condition: Stable - Instructions Diet, Activity, Other Instructions: Low salt low cholestrol Referrals: Jf Chambers MD [Primary Care Provider] - 2 Weeks Ashley Bejarano MD [Staff Physician] - 2 Weeks Disposition: HOME - Home Medications Comprehensive Discharge Medication List: Ambulatory Orders Levothyroxine [Synthroid -] 100 mcg PO DAILY 11/14/14 Valsartan [Diovan] 160 mg PO DAILY 11/14/14 Collagenase Clostridium Hist. [Santyl -] 1 applic TP DAILY #14 applic 01/06/16 Amlodipine Besylate [Norvasc -] 5 mg PO DAILY #30 tablet 01/28/19 Aspirin [ASA -] 81 mg PO DAILY #30 tab.chew 01/28/19 Atorvastatin Ca [Lipitor] 40 mg PO HS #30 tablet 01/28/19 Pantoprazole Sodium [Protonix -] 40 mg PO DAILY #30 tablet.ec 01/28/19
[2019-01-28 16:49] VITALS: BP 149/56
== END 2019-01-28 17:12 | disposition home or self-care (01) | DRG 313 ==
LOC: SUPCPDRO 16:59 → JER 16:59 → JERBED 18:52 → J4W 01-26 01:06 → OBSVTOIN 01-28 14:59
PROVIDERS: ADMIT Internal Medicine; ATTEND Internal Medicine
DX: R07.89 Other chest pain (principal); I47.1 Supraventricular tachycardia; R55 Syncope and collapse; E78.5 Hyperlipidemia, unspecified; E03.9 Hypothyroidism, unspecified; R42 Dizziness and giddiness; I10 Essential (primary) hypertension; K21.9 Gastro-esophageal reflux disease without esophagitis
CPT/HCPCS: 36415; 70450-TC; 71045-TC-FY; 71250-TC; 80053; 80061; 81003; 82550; 83036; 83690; 83721; 83735; 83880; 84100; 84443; 84484; 85025; 85610; 85730; 87804; 93005; 93010; 93306-TC; 93970-TC; 99282-25; G0378; J1644

== ENCOUNTER 2021-02-01 13:20 | Inpatient (IN) | payer OTHER ==
[2021-02-01 16:42] LABS: BASO % 1.3 % (0-2.0); HEMATOCRIT 39.3 % (32.4-45.2); HEMOGLOBIN 13.2 GM/dL (10.7-15.3); LYMPH % 21.5 % (8-40); MCH 29.4 pg (25.7-33.7); MCHC 33.7 g/dl (32.0-36.0); MEAN CELL VOLUME 87.2 fl (80-96); MEAN PLT VOLUME 8.5 fl (7.5-11.1); NEUT % 72.2 % (42.8-82.8); PLATELET COUNT 245 K/MM3 (134-434); RDW 14.1 % (11.6-15.6); WHITE BLOOD COUNT 8.2 K/mm3 (4.0-10.0)
[2021-02-01 16:46] LABS: URINE APPEARANCE CLEAR; URINE BILIRUBIN NEGATIVE (NEGATIVE); URINE COLOR YELLOW; URINE GLUCOSE (UA) NEGATIVE (NEGATIVE); URINE KETONE NEGATIVE (NEGATIVE); URINE LEUK ESTERASE 1+ (NEGATIVE); URINE NITRITE NEGATIVE (NEGATIVE); URINE PROTEIN NEGATIVE (NEGATIVE); URINE UROBILINOGEN 0.2 mg/dL (0.2-1.0)
[2021-02-01 17:05] LABS: CHLORIDE 108 mmol/L (98-107); SODIUM 139 mmol/L (136-145)
[2021-02-01 17:07] LABS: CALCIUM 8.4 mg/dL (8.5-10.1)
[2021-02-01 17:08] LABS: ALBUMIN 3.9 g/dl (3.4-5.0); ANION GAP 7 MMOL/L (8-16); BLOOD UREA NITROGEN 13.4 mg/dL (7-18); CO2 24 mmol/L (21-32); GLUCOSE,RANDOM 81 mg/dL (74-106)
[2021-02-01 17:11] LABS: CREATININE 0.8 mg/dL (0.55-1.3); SGOT/AST 12 U/L (15-37); SGPT/ALT 13 U/L (13-61)
[2021-02-01 17:12] LABS: BILIRUBIN,TOTAL 0.6 mg/dL (0.2-1)
[2021-02-01 17:13] LABS: TOT PROT 7.6 g/dl (6.4-8.2)
[2021-02-01 17:14] LABS: ALK PHOS 73 U/L (45-117)
[2021-02-01 17:59] LABS: EPI CELLS 11.8 /uL (0-25.1); HYALINE CASTS 0.51 /uL (0-3.1); URINE BACTERIA 141.4 /uL (0-1359); URINE RBC 1.6 /uL (0-23.9); URINE WBC 21.36 /uL (0-25.8)
[2021-02-01] MEDS ORDERED: VALSARTAN 160 MG TABLET PO ONE (20:56)
[2021-02-01] MEDS ORDERED: VALSARTAN 80 MG TABLET ONE (21:01)
[2021-02-01] MEDS ORDERED: HYDROCHLOROTHIAZIDE 12.5 MG CAPSULE (FP) PO ONE (22:05)
[2021-02-01] MEDS ORDERED: HYDROCHLOROTHIAZIDE 25 MG TABLET (FP) ONE (22:20)
[2021-02-01] MEDS ORDERED: DOCUSATE SODIUM 100 MG CAPSULE (FP) PO PRN (23:27)
[2021-02-01] MEDS ORDERED: ALBUTEROL SO4 HFA INHALER IH PRN (23:31)
[2021-02-01] MEDS ORDERED: MELATONIN 5 MG TABLETS PO PRN (23:41)
[2021-02-01] MEDS ORDERED: SENNOSIDES 8.6MG TABLET (FP) PO PRN (23:41)
[2021-02-01] MEDS ORDERED: guaiFENesin/D-METHORPHAN HB 10 ML UNIT-DOSE CUPS PO PRN (23:56)
[2021-02-02 05:09] VITALS: BMI 35.5
[2021-02-02] MEDS ORDERED: LEVOTHYROXINE NA 100 MCG TABLET (FP) PO SCH (07:00)
[2021-02-02 07:55] LABS: BASO % 1.7 % (0-2.0); EOS % 2.6 % (0-4.5); HEMATOCRIT 36.3 % (32.4-45.2); HEMOGLOBIN 12.3 GM/dL (10.7-15.3); LYMPH % 30.4 % (8-40); MCH 29.3 pg (25.7-33.7); MCHC 33.8 g/dl (32.0-36.0); MEAN CELL VOLUME 86.6 fl (80-96); MEAN PLT VOLUME 8.7 fl (7.5-11.1); MONO % 6.1 % (3.8-10.2); NEUT % 59.2 % (42.8-82.8); PLATELET COUNT 211 K/MM3 (134-434); RBC 4.19 M/mm3 (3.60-5.2); RDW 13.7 % (11.6-15.6)
[2021-02-02 08:15] LABS: ALBUMIN 3.3 g/dl (3.4-5.0); BLOOD UREA NITROGEN 10.9 mg/dL (7-18); CALCIUM 8.6 mg/dL (8.5-10.1)
[2021-02-02 08:16] LABS: MAGNESIUM 2.1 mg/dL (1.8-2.4)
[2021-02-02 08:17] LABS: CHOLESTEROL 233 mg/dL (50-200); TRIGLYCERIDES 58 mg/dL (0-150)
[2021-02-02 08:18] LABS: CREATININE 0.7 mg/dL (0.55-1.3); LDL CHOLESTEROL (ONLY SJRH) 131 mg/dL (5-100); PHOSPHOROUS 3.5 mg/dL (2.5-4.9)
[2021-02-02 08:19] LABS: BILIRUBIN,TOTAL 0.5 mg/dL (0.2-1)
[2021-02-02 08:20] LABS: HDL CHOLESTEROL 67 mg/dL (40-60); TOT PROT 6.8 g/dl (6.4-8.2)
[2021-02-02] MEDS ORDERED: VALSARTAN 160 MG TABLET PO SCH ×3 (10:00)
[2021-02-02] MEDS ORDERED: ENOXAPARIN NA (PORCINE) 40 MG/0.4 ML DISP.SYRIN SQ SCH (10:00)
[2021-02-02] MEDS ORDERED: DEXAMETHASONE SOD PHOSPHATE 4 MG/1 ML VIAL IVPUSH SCH (10:00)
[2021-02-02] MEDS ORDERED: ZINC SULFATE 220 MG CAPSULE (FP) PO SCH (10:00)
[2021-02-02] MEDS ORDERED: CHOLECALCIFEROL (VIT D3) 1,000 UNIT (25 MCG) TABLET PO SCH (10:00)
[2021-02-02] MEDS ORDERED: ASCORBIC ACID 500 MG TABLET (FP) PO SCH (10:00)
[2021-02-02] MEDS ORDERED: FAMOTIDINE 20 MG/50 ML IVPB 20 MG/50 ML MG IVPB SCH (10:00)
[2021-02-02] MEDS ORDERED: CEPHALEXIN MONOHYDRATE 500 MG CAPSULE (UD) PO SCH (12:00)
[2021-02-02] MEDS ORDERED: LYTES/YERBA SANTA 240 ML BOTTLE MM SCH (13:15)
[2021-02-02 14:12] VITALS: BP 152/73; PULSE 75; TEMP 98.3
[2021-02-03 07:07] LABS: SARS-CoV-2 NAA Not Detected (Not Detected)
== END 2021-02-02 18:45 | disposition home or self-care (01) | DRG 178 ==
LOC: JER 13:20 → JERBED 17:32 → J6S 23:33
PROVIDERS: ADMIT Internal Medicine; ATTEND Student in an Organized Health Care Education/Training Program
DX: U07.1 COVID-19 (principal); N39.0 Urinary tract infection, site not specified; I16.0 Hypertensive urgency; E66.9 Obesity, unspecified; E78.5 Hyperlipidemia, unspecified; E03.9 Hypothyroidism, unspecified; Z68.35 Body mass index [BMI] 35.0-35.9, adult
CPT/HCPCS: 36415; 71046-TC-FY; 80053; 80061; 81003; 82550; 82728; 83615; 83721; 83735; 83880; 84100; 84436; 84443; 84484; 85025; 85379; 86140; 87086; 93005; 93010; 99285-25; C9803; U0003; U0005

== ENCOUNTER 2024-06-13 16:28 | Emergency (ER) | payer OTHER ==
[2024-06-13 16:42] VITALS: RESP 18; BMI 30.9
[2024-06-13 17:54] LABS: HEMATOCRIT 39.9 % (32.4-45.2); HEMOGLOBIN 12.9 G/dL (10.7-15.3); MCH 28.1 pg (25.7-33.7); MCHC 32.3 g/dl (32.0-36.0); MEAN CELL VOLUME 87.2 fl (80-96); MEAN PLT VOLUME 8.8 fl (7.5-11.1); PLATELET COUNT 239.7 10^3/uL (134-434); RBC 4.58 10^6/uL (3.60-5.2); RDW 14.5 % (11.6-15.6); WHITE BLOOD COUNT 9.3 10^3/uL (4.0-10.8)
[2024-06-13 18:05] LABS: ALBUMIN 4.2 g/dl (3.4-5.0); BILIRUBIN,TOTAL 0.8 mg/dl (0.2-1); CALCIUM 9.9 mg/dl (8.5-10.1); CREATININE 0.7 mg/dl (0.6-1.3); MAGNESIUM 1.6 mg/dL (1.8-2.4); TOT PROT 7.3 g/dl (6.4-8.2)
[2024-06-13] MEDS: SODIUM CHLORIDE 500 ML IV STA (18:39)
[2024-06-13 19:02] LABS: PLATELET ESTIMATE ADEQUATE
[2024-06-13 19:18] LABS: URIC ACID CRYSTALS FEW /hpf (NONE SEEN)
[2024-06-13 19:37] VITALS: BP 166/52; PULSE 62; TEMP 97.6
== END 2024-06-13 20:46 | disposition home or self-care (01) ==
LOC: FER 16:28
PROC: 3E033GC Introduction of Other Therapeutic Substance into Peripheral Vein, Percutaneous Approach (ICD-10-PCS; principal; 2024-06-13)
DX: R53.1 Weakness (principal); R42 Dizziness and giddiness; R53.83 Other fatigue; R07.89 Other chest pain; Z20.822 Contact with and (suspected) exposure to COVID-19
CPT/HCPCS: 0241U-QW; 36415; 80053; 81003; 81015; 83735; 84484; 85027; 93005; 99284-25